=== PATIENT | female | born 1985 | race American Indian/Alaskan Native ===

== ENCOUNTER 2020-02-15 14:04 | Emergency (ER) | payer MEDICAID ==
[2020-02-15 14:29] VITALS: BP 145/78
--- NOTE | 2020-02-15 14:29 | Event Note ---
ED Screening Note Date of service: 02/15/20 Time: 14:26 ED Screening Note: 34 y o female presents with left sided flank pain x 3 days ago worsening 4 am today also cc of n/v/d lmp -12/29/19 works at [employer] in [employer] car denies vag bleed, urinary sx This initial assessment/diagnostic orders/clinical plan/treatment(s) is/are subject to change based on patients health status, clinical progression and re- assessment by fellow clinical providers in the ED. Further treatment and workup at subsequent clinical providers discretion. Patient/guardian urged not to elope from the ED as their condition may be serious if not clinically assessed and managed. Initial orders include: ua, upt acc eval
[2020-02-15 15:07] LABS: Basophils % (Auto) 0.6 % (0.0-1.8); Eosinophils # (Auto) 0.2 K/mm3 (0.0-0.4); Eosinophils % (Auto) 3.3 % (0.0-4.3); Hematocrit 38.7 % (30.3-42.9); Hemoglobin 12.8 gm/dl (10.1-14.3); Lymphocytes # (Auto) 1.8 K/mm3 (1.2-5.4); Lymphocytes % (Auto) 34.2 % (13.4-35.0); Mean Corpuscular HGB Conc 33 % (30-34); Mean Corpuscular Volume 81 fl (79-97); Monocytes # (Auto) 0.4 K/mm3 (0.0-0.8); Monocytes % (Auto) 7.3 % (0.0-7.3); Platelet Count 270 K/mm3 (140-440); Red Cell Distribution Width 13.5 % (13.2-15.2)
[2020-02-15 15:28] LABS: Alanine Aminotransferase 11 units/L (7-56); BUN/Creatinine Ratio 14; Blood Urea Nitrogen 7 mg/dL (7-17); Calcium 9.1 mg/dL (8.4-10.2); Hemolysis Index 8
[2020-02-15] MEDS ORDERED: METOCLOPRAMIDE 10 MG/2 ML INJ IV ONE (15:33)
[2020-02-15] MEDS ORDERED: LACTATED RINGERS 1,000 ML IV ONE (15:33)
[2020-02-15] MEDS ORDERED: diphenhydrAMINE 50 MG/ML VIAL IV ONE (15:33)
--- NOTE | 2020-02-15 17:20 | Ultrasound Report ---
ULTRASOUND OBSTETRIC INDICATION / CLINICAL INFORMATION: , pain. TECHNIQUE: Transabdominal. COMPARISON: None available. FINDINGS: GESTATIONAL SAC: Well-defined oval shape and intrauterine in location. YOLK SAC: No significant abnormality. EMBRYO/FETUS: No significant abnormality. - [place]-Rump Length = 3.16 cm = 10 weeks, 0 day(s). - Heart Rate, beats per minute (if present) = 180 ADNEXA: No significant abnormality. FREE FLUID: None. ADDITIONAL FINDINGS: None. IMPRESSION: 1. Single, living intrauterine with estimated sonographic age of 10 weeks, 0 day(s). Signer Name: Chandler Fox MD Signed: 02/15/2020 5:16 PM Workstation Name: [id number]
[2020-02-15 17:44] LABS: Bacteria,Urine 1+ /HPF (Negative); Bilirubin,Urine NEG (Negative); Blood,Urine NEG (Negative); Color,Urine Yellow (Yellow); Mucus,Urine 3+ /HPF; Protein,Urine <15 mg/dL mg/dL (Negative)
--- NOTE | 2020-02-15 18:38 | Emergency Department Report ---
ED General Adult HPI - General Chief complaint: Abdominal Pain Stated complaint: ABDOMINAL PAIN/ASTHMA Time Seen by Provider: 02/15/20 15:35 Source: patient Mode of arrival: Ambulatory Limitations: No Limitations - History of Present Illness Initial comments: Patient is a 34-year-old female presents emergency room with complaints of possibly being . She states that she did not take a test at home. She states she has an appointment with a resource center in approximately 2 weeks. She states that she has had left-sided flank pain for 3 days. She states that she is also had nausea, vomiting, diarrhea. She states that she has had approximately 3-5 episodes of each a day. She denies any urinary symptoms, fever, vaginal bleeding, recent antibiotics. She has a past medical history of asthma. Allergy to penicillin and Bactrim. Last menstrual cycle December 28. /P:3/A:0 - Related Data Previous Rx's Medication Instructions Recorded Last Taken Type Acetaminophen [Tylenol] 650 mg PO Q8HR PRN #14 capsule 02/15/20 Unknown Rx Metoclopramide [Reglan] 10 mg PO Q8HR PRN #12 tab 02/15/20 Unknown Rx Allergies Allergy/AdvReac Type Severity Reaction Status Date / Time Penicillins Allergy Angioedema Verified 02/15/20 14:08 sulfamethoxazole AdvReac Angioedema Verified 02/15/20 14:08 [From Bactrim] trimethoprim [From Bactrim] AdvReac Angioedema Verified 02/15/20 14:08 ED Review of Systems ROS: Stated complaint: ABDOMINAL PAIN/ASTHMA Other details as noted in HPI Comment: All other systems reviewed and negative ED Past Medical Hx - Past Medical History Hx Asthma: Yes - Surgical History Past Surgical History?: No - Social History Smoking Status: Current Every Day Smoker Substance Use Type: None - Medications Home Medications: Home Medications Medication Instructions Recorded Confirmed Last Taken Type Acetaminophen [Tylenol] 650 mg PO Q8HR PRN #14 capsule 02/15/20 Unknown Rx Metoclopramide [Reglan] 10 mg PO Q8HR PRN #12 tab 02/15/20 Unknown Rx ED Physical Exam - General Limitations: No Limitations General appearance: alert, in no apparent distress - Head Head exam: Present: atraumatic, normocephalic - Eye Eye exam: Present: normal appearance - ENT ENT exam: Present: mucous membranes moist - Respiratory Respiratory exam: Present: normal lung sounds bilaterally. Absent: respiratory distress, wheezes, rales, rhonchi, stridor, chest wall tenderness, accessory muscle use, decreased breath sounds, prolonged expiratory - Cardiovascular Cardiovascular Exam: Present: regular rate, normal rhythm, normal heart sounds. Absent: systolic murmur, diastolic murmur, rubs, gallop - GI/Abdominal GI/Abdominal exam: Present: soft, normal bowel sounds. Absent: distended, tenderness, guarding, rebound, rigid - Back Exam Back exam: Absent: CVA tenderness (R), CVA tenderness (L) - Neurological Exam Neurological exam: Present: alert, oriented X3 - Psychiatric Psychiatric exam: Present: normal affect, normal mood - Skin Skin exam: Present: warm, dry, intact ED Course Vital Signs 02/15/20 14:26 Temperature 98.4 F Pulse Rate 104 H Respiratory 14 Rate Blood Pressure 145/78 O2 Sat by Pulse 99 Oximetry ED Medical Decision Making - Lab Data Result diagrams: 02/15/20 14:41 02/15/20 14:41 - Radiology Data Radiology results: report reviewed ULTRASOUND OBSTETRIC INDICATION / CLINICAL INFORMATION: , pain. TECHNIQUE: Transabdominal. COMPARISON: None available. FINDINGS: GESTATIONAL SAC: Well-defined oval shape and intrauterine in location. YOLK SAC: No significant abnormality. EMBRYO/FETUS: No significant abnormality. - [place]-Rump Length = 3.16 cm = 10 weeks, 0 day(s). - Heart Rate, beats per minute (if present) = 180 ADNEXA: No significant abnormality. FREE FLUID: None. ADDITIONAL FINDINGS: None. IMPRESSION: 1. Single, living intrauterine with estimated sonographic age of 10 weeks, 0 day(s). Signer Name: Chandler Fox MD Signed: 02/15/2020 5:16 PM Workstation Name: [id number] Transcribed By: WG Dictated By: Chandler Fox MD Electronically Authenticated By: Chandler Fox MD Signed Date/Time: 02/15/201715 DD/ 14 TD/TT: - Medical Decision Making Patient is a 34-year-old female presents emergency room with complaints of pos sibly being . She states that she did not take a test at home. She states she has an appointment with a resource center in approximately 2 weeks. She states that she has had left-sided flank pain for 3 days. She states that she is also had nausea, vomiting, diarrhea. She states that she has had approximately 3-5 episodes of each a day. She denies any urinary symptoms, fever, vaginal bleeding, recent antibiotics. She has a past medical history of asthma. Allergy to penicillin and Bactrim. Last menstrual cycle December 28. /P:3/A:0. vitals with mild tachycardia which improved on auscultation. No abdominal tenderness on exam, no guarding, no rebound, no ri gidity, no CVA tenderness. US OB: 1. Single, living intrauterine with estimated sonographic age of 10 weeks, 0 day(s). Labs with signs of dehydration[place] [address]. UA without evidence of UTI. Patient given 1 L of lactated Ringer's, Reglan, Benadryl and symptoms significantly improved and she was feeling much better. Patient had no further episodes of vomiting or diarrhea while in the emergency department and was able to tolerate p.o. intake without difficulty. Discussed all results with patient. Patient given prescription for Reglan and Tylenol. Advised patient Please increase your fluid intake over the next several days. Please take medication as prescribed as needed. Please eat a bland diet and began with liquids and then slowly advance your diet as tolerated. Avoid anything greasy or sugary. Please begin taking a vitamin [id number]. Please follow-up with an CRITICAL SYSTEMS TECHNICIAN for your care. Return to emergency room immediately for any new or worsening symptoms. - Differential Diagnosis IUP, ectopic, UTI, pyelonephritis, nephrolithiasis, NICOLAS, dehydration,viral Critical care attestation.: If time is entered above; I have spent that time in minutes in the direct care of this critically ill patient, excluding procedure time. ED Disposition Clinical Impression: Nausea vomiting and diarrhea, Flank pain Qualifiers: Weeks of gestation: 10 weeks Qualified Code(s): Z3A.10 - 10 weeks gestation of Disposition: DC-01 TO HOME OR SELFCARE Is pt being admited?: No Does the pt Need Aspirin: No Condition: Stable Instructions: (ED), Gastroenteritis (ED) Additional Instructions: Please increase your fluid intake over the next several days. Please take medication as prescribed as needed. Please eat a bland diet and began with liquids and then slowly advance your diet as tolerated. Avoid anything greasy or sugary. Please begin taking a vitamin [id number]. Please follow-up with an CRITICAL SYSTEMS TECHNICIAN for your care. Return to emergency room immediately for any new or worsening symptoms. Prescriptions: Metoclopramide [Reglan] 10 mg PO Q8HR PRN #12 tab PRN Reason: Nausea And Vomiting Acetaminophen [Tylenol] 650 mg PO Q8HR PRN #14 capsule PRN Reason: pain Referrals: [facility] [Provider Group] - 2-3 Days [facility] [Provider Group] - 2-3 Days Time of Disposition: 18:36 Print Language: GRENADIAN
== END 2020-02-15 18:51 | disposition home or self-care (01) ==
LOC: ED 14:04
DX: O21.8 Other vomiting complicating pregnancy (principal); O26.891 Other specified pregnancy related conditions, first trimester; R10.9 Unspecified abdominal pain; R19.7 Diarrhea, unspecified; J45.909 Unspecified asthma, uncomplicated; F17.200 Nicotine dependence, unspecified, uncomplicated; Z79.899 Other long term (current) drug therapy; Z88.0 Allergy status to penicillin; Z88.8 Allergy status to other drugs, medicaments and biological substances; Z3A.10 10 weeks gestation of pregnancy
CPT/HCPCS: 36415; 76801; 80053; 81001; 84702; 84703; 85025; 96361; 96374; 96375; 99284; J1200; J2765; J7120

== ENCOUNTER 2020-09-07 19:33 | Outpatient (CLI) | payer MEDICAID ==
[2020-09-07 21:23] LABS: Amphetamine Screen,Urine PRESUMPTIVE NEGATIVE; Benzodiazepines Screen,Urine PRESUMPTIVE NEGATIVE; Cannabinoid Screen,Urine PRESUMPTIVE POSITIVE; Cocaine Screen,Urine PRESUMPTIVE NEGATIVE; Methadone Screen,Urine PRESUMPTIVE NEGATIVE; Opiate Screen,Urine PRESUMPTIVE NEGATIVE
[2020-09-07 21:28] LABS: Bilirubin,Urine NEG (Negative); Blood,Urine NEG (Negative); Color,Urine Yellow (Yellow); Mucus,Urine 2+ /HPF
[2020-09-08 00:13] LABS: Hematocrit 34.2 % (30.3-42.9); Mean Corpuscular HGB Conc 35 % (30-34); Mean Corpuscular Volume 80 fl (79-97); Platelet Count 208 K/mm3 (140-440); Red Blood Count 4.27 M/mm3 (3.65-5.03); Red Cell Distribution Width 14.4 % (13.2-15.2)
[2020-09-08 00:40] LABS: Alanine Aminotransferase < 5 units/L (7-56)
[2020-09-08 02:00] LABS: Uric Acid 5.1 mg/dL (3.5-7.6)
[2020-09-08 03:33] VITALS: BP 138/84
== END 2020-09-08 03:50 | disposition home or self-care (01) ==
LOC: TRG 19:33 → APU 09-08 00:09 → TRG 09-08 03:50
PROVIDERS: ATTEND Obstetrics & Gynecology
DX: O26.893 Other specified pregnancy related conditions, third trimester (principal); R10.9 Unspecified abdominal pain; Z3A.39 39 weeks gestation of pregnancy
CPT/HCPCS: 36415; 59025; 80307; 81001; 82565; 83615; 84450; 84460; 84550; 85027